=== PATIENT | male | born 1980 | race Caucasian/White ===

== ENCOUNTER 2018-05-07 06:46 | Observation (INO) | payer OTHER ==
[2018-05-07] MEDS: SOD CHLORIDE 0.9% 1,000 ML IV (07:33)
[2018-05-07] MEDS: morphine 4 MG/ML VIAL IV (07:33)
[2018-05-07] MEDS: ONDANSETRON 4 MG INJ IV (07:33)
[2018-05-07 07:48] LABS: ADD MAN DIFF? NO
[2018-05-07 07:50] LABS: BASOPHILS % 0.2 % (0.0-2.0); EOSINOPHILS % 0.3 % (0.0-7.0); HEMATOCRIT 42.7 % (42.0-52.0); HEMOGLOBIN 14.8 g/dl (14.0-18.0); LYMPHOCYTES # 1.3 10^3/ul (0.8-2.9); LYMPHOCYTES % 10.3 % (15.0-51.0); MEAN CORPUSCULAR HEMOGLOBIN 31.3 pg (29.0-33.0); MEAN CORPUSCULAR HGB CONC 34.7 g/dl (32.0-37.0); MEAN CORPUSCULAR VOLUME 90.3 fl (82.0-101.0); MEAN PLATELET VOLUME 9.5 fl (7.4-10.4); MONOCYTE # 0.6 10^3/ul (0.3-0.9); MONOCYTES % 4.8 % (0.0-11.0); NEUTROPHIL # 10.3 10^3/ul (1.6-7.5); NEUTROPHILS % 83.8 % (39.0-77.0); PLATELET COUNT 292 10^3/UL (140-415); RED BLOOD COUNT 4.73 10^6/ul (4.70-6.10); RED CELL DISTRIBUTION WIDTH 12.8 % (11.5-14.5)
[2018-05-07 07:50] LABS: WHITE BLOOD COUNT 12.3 10^3/ul (4.8-10.8)
[2018-05-07 07:53] LABS: ADD UMIC NO; UR ASCORBIC ACID NEGATIVE (NEGATIVE); UR BILIRUBIN (Dip) NEGATIVE (NEGATIVE); UR BLOOD (Dip) NEGATIVE (NEGATIVE); UR CLARITY CLEAR (CLEAR); UR COLOR YELLOW (YELLOW); UR GLUCOSE (Dip) NEGATIVE (NEGATIVE); UR KETONES (Dip) TRACE mg/dL (NEGATIVE); UR LEUKOCYTE ESTERASE (Dip) NEGATIVE Leu/ul (NEGATIVE); UR NITRITE (Dip) NEGATIVE (NEGATIVE); UR SPECIFIC GRAVITY (Dip) 1.023 (1.003-1.030); UR TOTAL PROTEIN (Dip) NEGATIVE (NEGATIVE); UR UROBILINOGEN (Dip) NEGATIVE (NEGATIVE)
[2018-05-07 08:09] LABS: ALANINE AMINOTRANSFERASE 34 IU/L (13-69); ALBUMIN 4.2 g/dl (3.3-4.9); ALBUMIN/GLOBULIN RATIO 1.35; ALKALINE PHOSPHATASE 90 IU/L (42-121); AMYLASE 71 U/L (11-123); ANION GAP 6 (8-16); ASPARTATE AMINO TRANSFERASE 19 IU/L (15-46); BILIRUBIN,INDIRECT 0.3 mg/dl (0-1.1); BILIRUBIN,TOTAL 0.3 mg/dl (0.2-1.3); BLOOD UREA NITROGEN 18 mg/dl (7-20); CALCIUM 9.3 mg/dl (8.4-10.2); CARBON DIOXIDE 28 mmol/L (21-31); CHLORIDE 112 mmol/L (97-110); CREATININE 0.85 mg/dl (0.61-1.24); GLUCOSE 136 mg/dl (70-220); LIPASE 52 U/L (23-300); POTASSIUM 3.9 mmol/L (3.5-5.1); SODIUM 142 mmol/L (135-144); TOTAL PROTEIN 7.3 g/dl (6.1-8.1)
[2018-05-07 08:11] LABS: INR 0.93; PROTIME 12.5 Sec (11.9-14.9)
[2018-05-07 08:12] LABS: PARTIAL THROMBOPLASTIN TIME 28.1 Sec (25.0-35.0)
[2018-05-07] MEDS ORDERED: PROPOFOL 20 ML (11:03)
[2018-05-07] MEDS ORDERED: ROCURONIUM 50 MG INJ (11:03)
[2018-05-07] MEDS ORDERED: LIDOCAINE 2% (SDV) 5 ML INJ (11:03)
[2018-05-07] MEDS ORDERED: MIDAZOLAM 1 MG/ML 2 ML INJ (11:04)
[2018-05-07] MEDS ORDERED: ROPIVACAINE 0.2% 20 ML VIAL (11:04)
[2018-05-07] MEDS ORDERED: BUPIVACAINE 0.25% (MPF) 30 ML INJ (11:42)
[2018-05-07] MEDS ORDERED: FAMOTIDINE 20 MG INJ (12:27)
[2018-05-07] MEDS ORDERED: CEFAZOLIN 1 GM INJ (12:27)
[2018-05-07] MEDS ORDERED: DEXAMETHASONE 4 MG/ML 1 ML INJ (12:27)
[2018-05-07] MEDS ORDERED: ONDANSETRON 4 MG INJ (12:27)
[2018-05-07] MEDS ORDERED: IOHEXOL 300MG/ML 30 ML BTL (12:36)
[2018-05-07] MEDS ORDERED: SUGAMMADEX SODIUM 200 MG/2 ML VIAL IV (13:06)
== END 2018-05-07 15:05 | disposition home or self-care (01) ==
LOC: E/R 06:46 → REC 08:38
DX: K80.20 Calculus of gallbladder without cholecystitis without obstruction (principal)
CPT/HCPCS: 36415; 80053; 81003; 82150; 83690; 85025; 85610; 85730; 93005; 96374; 96375; 99217; 99285-25